=== PATIENT | male | born 1975 | race African-American/Black ===

== ENCOUNTER 2021-12-10 12:20 | Emergency (ER) | payer BC ==
[~2021-12-10] VITALS: Ht 180.3 cm; Wt 97.5 kg
[2021-12-10] MEDS ORDERED: GLUMETZA500 MG (13:18)
[2021-12-10] MEDS ORDERED: ZESTRIL2.5 MG (13:18)
[2021-12-10] MEDS ORDERED: GLIPIZIDE XL5 MG (13:18)
== END 2021-12-10 15:12 | disposition home or self-care (01) ==
LOC: ER 12:20
DX: G51.0 Bell's palsy (principal); T78.40XA Allergy, unspecified, initial encounter